=== PATIENT | male | born 1990 | race Caucasian/White ===

== ENCOUNTER 2017-05-27 23:31 | Emergency (ER) | payer OTHER ==
[~2017-05-27] VITALS: Ht 175.3 cm; Wt 72.7 kg
[2017-05-28] MEDS ORDERED: CYCLOBENZ5 MG PO (01:45)
[2017-05-28] MEDS ORDERED: KETOROLAC10 MG PO (01:45)
[2017-05-28 01:54] VITALS: BP 110/74
== END 2017-05-28 01:54 | disposition home or self-care (01) ==
LOC: ED 23:31
DX: S39.012A Strain of muscle, fascia and tendon of lower back, initial encounter (principal); X50.0XXA Overexertion from strenuous movement or load, initial encounter; Y92.39 Other specified sports and athletic area as the place of occurrence of the external cause
CPT/HCPCS: J1885; J2360

== ENCOUNTER 2017-08-25 13:04 | Outpatient (RCR) | payer OTHER ==
[~2017-08-25 13:04] MED LIST: CYCLOBENZ5 MG PO; KETOROLAC10 MG PO
== END 2017-08-25 13:30 | disposition home or self-care (01) ==
LOC: PT 13:04
DX: M25.562 Pain in left knee (principal); G89.29 Other chronic pain; M23.207 Derangement of unspecified meniscus due to old tear or injury, left knee; X58.XXXD Exposure to other specified factors, subsequent encounter

== ENCOUNTER → 2017-09-12 | Outpatient (CLI) | payer OTHER | LOC: PT 10:59 | DX: Z01.818 Encounter for other preprocedural examination (principal); M65.30 Trigger finger, unspecified finger ==

== ENCOUNTER 2017-10-20 11:00 | Outpatient (RCR) | payer OTHER | END 2017-10-20 11:30 | disposition home or self-care (01) | LOC: PT 11:00 | DX: Z47.89 Encounter for other orthopedic aftercare (principal); M65.331 Trigger finger, right middle finger ==